=== PATIENT | male | born 1995 | race Caucasian/White ===

== ENCOUNTER 2016-07-15 19:03 | Emergency (ER) | payer BC | END 2016-07-15 20:38 | disposition left against medical advice (07) | LOC: UCCORT 19:03 | DX: S89.92XA Unspecified injury of left lower leg, initial encounter (principal); X58.XXXA Exposure to other specified factors, initial encounter; Y93.9 Activity, unspecified; Y92.9 Unspecified place or not applicable; Z53.21 Procedure and treatment not carried out due to patient leaving prior to being seen by health care provider ==

== ENCOUNTER 2016-07-15 20:38 | Emergency (ER) | payer BC ==
[2016-07-15 20:51] VITALS: BP 145/75
--- NOTE | 2016-07-15 21:26 | UC ---
Knee Pain HPI - HPI Summary HPI Summary: About 2 weeks ago fell directly onto L kneecap -- denies twisting or collapsing of knee. Within seconds/minutes, developed large protuberant purple swelling but was able to keep playing his lacrosse game. After a day or two swelling went back down and large area of bruising appeared. Pain was mostly improved until a similar fall today, also without twisting or abnormal knee movements. No focal swelling, but now has lateral knee pain and some posterior knee pain on lateral aspect. Denies any sensation of instability, able to walk. - History of Current Complaint Chief Complaint: UCLowerExtremity Stated Complaint: KNEE INJURY Time Seen by Provider: 07/15/16 21:12 Hx Obtained From: Patient Onset/Duration: Sudden Onset Severity Initially: Moderate Severity Currently: Mild Character: Dull, Aching Aggravating Factor(s): Movement Alleviating Factor(s): Rest Associated Signs And Symptoms: Positive: Swelling, Bruising Able to Bear Weight: Yes - Allergies/Home Medications Allergies/Adverse Reactions: Allergies Allergy/AdvReac Type Severity Reaction Status Date / Time No Known Allergies Allergy Verified 07/15/16 20:51 PMH/Surg Hx/FS Hx/Imm Hx Respiratory History Of: Reports: Asthma - Surgical History Surgical History: None - Family History Known Family History: Positive: None - Social History Lives: With Family Alcohol Use: Occasionally Substance Use Type: None Smoking Status (MU): Never Smoked Tobacco Household Exposure Type: Cigarettes - Immunization History Vaccination Up to Date: Yes Review of Systems Constitutional: Negative Skin: Bruising, Other - L knee abrasion Eyes: Negative ENT: Negative Respiratory: Negative Cardiovascular: Negative Gastrointestinal: Negative Genitourinary: Negative Motor: Negative Neurovascular: Negative Musculoskeletal: Arthralgia Neurological: Negative Psychological: Negative All Other Systems Reviewed And Are Negative: Yes Physical Exam Triage Information Reviewed: Yes Appearance: Well-Appearing, No Pain Distress, Well-Nourished Vital Signs: Initial Vital Signs Temp 99.3 F 07/15/16 20:47 Pulse 60 07/15/16 20:47 Resp 18 07/15/16 20:47 BP 145/75 07/15/16 20:47 Pulse Ox 97 07/15/16 20:47 Vital Signs Reviewed: Yes Eye Exam: Normal Eyes: Positive: Conjunctiva Clear ENT Exam: Normal ENT: Positive: Normal ENT inspection, Hearing grossly normal, Pharynx normal, TMs normal Dental Exam: Normal Neck exam: Normal Respiratory Exam: Normal Respiratory: Positive: Chest non-tender, Lungs clear, Normal breath sounds, No respiratory distress, No accessory muscle use Cardiovascular Exam: Normal Cardiovascular: Positive: RRR, No Murmur Musculoskeletal Exam: Other - diffuse swelling of L knee Musculoskeletal: Positive: Strength Intact, ROM Intact Neurological Exam: Normal Neurological: Positive: Alert Psychological Exam: Normal Skin Exam: Other - healing abrasions and old bruises to L knee and other parts of LLE Knee Pain Course/Dx - Differential Dx/Diagnosis Provider Diagnoses: L knee hematoma, healing. L knee contusion Discharge - Discharge Plan Condition: Stable Disposition: HOME Patient Education Materials: Knee Pain (ED), Contusion in Adults (ED) Referrals: Sreekanth Wayne MD [Primary Care Provider] - Additional Instructions: If you do not see clear and rapid improvement in the next 5-7 days, please follow up with Dr. Wayne's office. If you start to feel instability in the knee joint at any point, stop all athletics and see your primary care provider ( or an orthopedist) right away.
--- NOTE | 2016-07-15 22:00 | RAD ---
INDICATION: Left knee injury. TECHNIQUE: 4 views of the left knee were obtained. FINDINGS: The bones are in normal alignment. No joint effusion or fracture is seen. Joint spaces appear maintained. IMPRESSION: NO EVIDENCE FOR FRACTURE.
== END 2016-07-15 21:55 | disposition home or self-care (01) ==
LOC: UCEAST 20:38
DX: S80.02XA Contusion of left knee, initial encounter (principal); W19.XXXA Unspecified fall, initial encounter; J45.909 Unspecified asthma, uncomplicated; Z77.22 Contact with and (suspected) exposure to environmental tobacco smoke (acute) (chronic)
CPT/HCPCS: 99212; G0463

== ENCOUNTER 2016-11-12 10:43 | Emergency (ER) | payer BC ==
[2016-11-12 10:58] VITALS: BP 147/66
--- NOTE | 2016-11-12 11:21 | UC ---
Respiratory Complaint HPI - HPI Summary HPI Summary: 21 y/o male with h/o asthma, allerrgies c/o shortness of breath/ wheezing x 6 days. Patient overall feeling well, possible febrile on Friday, tactile only, working normally, no extreme SOB, lightheadedness. Patient states SOB is "annoying" alble to work, do daily activities. Has needed albuterol in the past, however does not have med or recent prescription. + cough, + runny nose. has been taking zyrtec without much benefit - History of Current Complaint Chief Complaint: UCRespiratory Stated Complaint: ASTHMA-MED REFILL Time Seen by Provider: 11/12/16 10:59 Hx Obtained From: Patient Onset/Duration: Lasting Days Timing: Constant Severity Initially: Moderate Severity Currently: Moderate Associated Signs And Symptoms: Positive: Dyspnea, Wheezing, URI, Nasal Congestion Related History: Similar Episode/Dx as: - h/o asthma - Risk Factors Pulmonary Embolism Risk Factors: Negative Cardiac Risk Factors: Negative Pseudomonas Risk Factors: Negative Tuberculosis Risk Factors: Negative - Allergies/Home Medications Allergies/Adverse Reactions: Allergies Allergy/AdvReac Type Severity Reaction Status Date / Time cats Allergy Eyes Uncoded 11/12/16 10:59 Itchy/Swollen/Red/Watery pollen Allergy Coughing Uncoded 11/12/16 10:59 Home Medications: Home Medications Cetirizine* [ZyrTEC 10 MG TAB*] 10 mg PO DAILY 11/12/16 [History Confirmed 11/12] Dextromethorphan-Phenylephrine [Vidhi-Kennett Plus Day Col 10-5-325 mg] 2 cap PO Q12H PRN 11/12/16 [History Confirmed 11/12/16] PMH/Surg Hx/FS Hx/Imm Hx Previously Healthy: No - h/o asthma, not requiring medication - Surgical History Surgical History: None - Family History Known Family History: Positive: None - Social History Alcohol Use: Occasionally Substance Use Type: None Smoking Status (MU): Never Smoked Tobacco Household Exposure Type: Cigarettes - Immunization History Vaccination Up to Date: Yes Review of Systems Constitutional: Fatigue Skin: Negative Eyes: Negative ENT: Sinus Congestion Respiratory: Shortness Of Breath, Cough Cardiovascular: Negative Gastrointestinal: Negative Genitourinary: Negative Motor: Negative Neurovascular: Negative Musculoskeletal: Negative Neurological: Negative Psychological: Negative All Other Systems Reviewed And Are Negative: Yes Physical Exam Triage Information Reviewed: Yes Appearance: Well-Appearing, No Pain Distress, Well-Nourished Vital Signs: Initial Vital Signs Temp 98.6 F 11/12/16 10:49 Pulse 75 11/12/16 10:49 Resp 18 11/12/16 10:49 BP 147/66 11/12/16 10:49 Pulse Ox 100 11/12/16 10:49 Vital Signs Reviewed: Yes Eye Exam: Normal Neck exam: Normal Neck: Positive: Supple, Nontender, No Lymphadenopathy Respiratory: Positive: No respiratory distress, No accessory muscle use, Wheezing - Entire R lobe Cardiovascular: Positive: RRR, No Murmur, Pulses Normal Abdomen Description: Positive: Nontender, No Organomegaly, Soft, Other: - neg b/ l cva tenderness Neurological Exam: Normal Psychological Exam: Normal Skin Exam: Normal Diagnostic Evaluation - Laboratory O2 Sat by Pulse Oximetry: 100 Respiratory Course/Dx - Course Course Of Treatment: asthma exacerbation likley to to viral URI. Qvar, albuterol given, patietn educated on sytmpoms, advised to follow up with PCP within 1 week or return to UC/ ER with increased SOB fever, chills - Differential Dx/Diagnosis Differential Diagnosis/HQI/PQRI: Aspiration, Asthma, Bronchitis, Lower Resp Infection, Sinusitis Provider Diagnoses: VIral upper respiratory illness, acute asthma exaccerbation , mild Discharge - Discharge Plan Condition: Good Disposition: HOME Prescriptions: Proair Hfa 2 puff INH Q4HR PRN #1 PRN Reason: Shortness Of Breath Albuterol HFA INHALER* [Ventolin HFA Inhaler*] 1 - 2 puff INH Q4H PRN #1 mdi PRN Reason: shortness of breath Beclomethasone 80 MCG MDI(NF) [Qvar 80 MCG MDI(NF)] 1 puff INH BID #1 mdi Patient Education Materials: Asthma (ED) Referrals: Sreekanth Wayne MD [Primary Care Provider] - Additional Instructions: - Albuterol inhaler- as needed every 4 hours for shortness of breath - Inhaled steroid/ Qvar- twice a day while having symptoms, decreased to once a day, stop after symptom free x 2 days - Follow up with primary physician if no improvement within 1-2 days - Return if symptoms worsen, fever, chills
== END 2016-11-12 11:27 | disposition home or self-care (01) ==
LOC: UCCORT 10:43
DX: J06.9 Acute upper respiratory infection, unspecified (principal); J45.901 Unspecified asthma with (acute) exacerbation; Z76.0 Encounter for issue of repeat prescription; Z77.22 Contact with and (suspected) exposure to environmental tobacco smoke (acute) (chronic)
CPT/HCPCS: 99212; G0463

== ENCOUNTER 2017-06-14 17:58 | Emergency (ER) | payer BC ==
[2017-06-14 18:26] VITALS: BP 153/88
--- NOTE | 2017-06-14 19:55 | UC ---
Complaint Male HPI - HPI Summary HPI Summary: This is an otherwise healthy 21 yo male who presents with concerns for dysuria and penile lesions. Dysuria has been present for a couple of days. No hematuria or penile discharge. No testicular pain/swelling. No fevers or abd pain. He noted one lesion at the base of his penis that he thought was an ingrown hair, 2 more have developed recently. He has one female partner which has had unprotected intercourse with. She was reportedly negative for STDs recently. No h/o STDs - History of Current Complaint Chief Complaint: UCGU Stated Complaint: POSSIBLE UTI Pain Intensity: 7 - Allergies/Home Medications Allergies/Adverse Reactions: Allergies Allergy/AdvReac Type Severity Reaction Status Date / Time cats Allergy Eyes Uncoded 06/14/17 18:27 Itchy/Swollen/Red/Watery pollen Allergy Coughing Uncoded 06/14/17 18:27 PMH/Surg Hx/FS Hx/Imm Hx Previously Healthy: Yes - Surgical History Surgical History: None - Family History Known Family History: Positive: None - Social History Alcohol Use: Occasionally Substance Use Type: Marijuana Substance Use Comment - Amount & Last Used: daily Smoking Status (MU): Never Smoked Tobacco Type: [email or web address] Household Exposure Type: Cigarettes - Immunization History Vaccination Up to Date: Yes Review of Systems Constitutional: Negative Skin: Negative Eyes: Negative ENT: Negative Respiratory: Negative Cardiovascular: Negative Gastrointestinal: Negative Genitourinary: Dysuria, Ulceration/Lesion Motor: Negative Neurovascular: Negative Musculoskeletal: Negative Neurological: Negative Psychological: Negative Is Patient Immunocompromised?: No All Other Systems Reviewed And Are Negative: Yes Physical Exam Triage Information Reviewed: Yes Appearance: Well-Appearing Vital Signs: Initial Vital Signs Temp 99.6 F 06/14/17 18:19 Pulse 68 06/14/17 18:19 Resp 18 06/14/17 18:19 BP 153/88 06/14/17 18:19 Pulse Ox 99 06/14/17 18:19 Vital Signs Reviewed: Yes ENT Exam: Normal ENT: Positive: Normal ENT inspection Neck exam: Normal Neck: Positive: Supple, Nontender, No Lymphadenopathy Respiratory Exam: Normal Respiratory: Positive: Lungs clear, Normal breath sounds. Negative: Crackles, Rhonchi, Wheezing Cardiovascular Exam: Normal Cardiovascular: Positive: RRR Abdominal Exam: Normal Abdomen Description: Positive: Nontender Musculoskeletal Exam: Normal Neurological Exam: Normal Psychological Exam: Normal Skin: Positive: Other - 3 erythemous lesions at the base of the penis, no ulceration or vesicles - Additional Comments No penile dc, testicular masses or swelling Diagnostics - Laboratory Diagnostic Studies Completed/Ordered: UA - WNL Complaint Male Course/Dx - Course Course Of Treatment: This is an otherwise healthy 21 yo male who presents with dysuria and penile lesions. UA is neg. Lesions appear benign. STD testing initiated including GC/Chl, HIV and syphillis. No drainage from the lesions to test for herpes - Differential Dx/Diagnosis Differential Diagnosis/HQI/PQRI: Epididymitis, Pyelonephritis, Urinary Tract Infection Provider Diagnoses: 1. Dysuria - possible STD, no empiric treatment initiated. Waiting for testing results Discharge - Discharge Plan Condition: Stable Disposition: HOME Patient Education Materials: Sexually Transmitted Diseases (ED), Safe Sex (ED) Referrals: Sreekanth Wayne MD [Primary Care Provider] - If Needed Additional Instructions: Instructions: 1. No treatment was started today 2. We will have results of your testing in 1-2 days
== END 2017-06-14 19:50 | disposition home or self-care (01) ==
LOC: UCEAST 17:58
DX: R30.0 Dysuria (principal); Z11.4 Encounter for screening for human immunodeficiency virus [HIV]
CPT/HCPCS: 36415; 81003; 86592; 86703; 87491; 87591; 99211; G0463

== ENCOUNTER 2018-06-23 10:32 | Emergency (ER) | payer BC ==
[2018-06-23 10:51] VITALS: BP 152/98
--- NOTE | 2018-06-23 11:11 | UC ---
General HPI - HPI Summary HPI Summary: States yesterday he began vomiting and having black diarrhea. About an hour ago he vomited dark red chunky vomit. He states he has had about 6-8 episodes of black diarrhea stools. No abdominal pain. Nausea. States he slightly lightheaded but did not eat or drink much this morning. No sick contacts. No SOB or CP. No abdominal pain. 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 Thinks it was the dust. No GI bleeding history. States he drinks 1-2 beers every other day. Smokes marijuana. Meds reviewed. - History of Current Complaint Chief Complaint: UCGI Stated Complaint: BLACK STOOL VOMITING BLOOD Time Seen by Provider: 06/23/18 10:56 Pain Intensity: 3 - Allergy/Home Medications Allergies/Adverse Reactions: Allergies Allergy/AdvReac Type Severity Reaction Status Date / Time cats Allergy Eyes Uncoded 06/23/18 10:51 Itchy/Swollen/Red/Watery pollen Allergy Coughing Uncoded 06/23/18 10:51 Home Medications: Home Medications Montelukast Sodium 10 mg PO DAILY 06/23/18 [History Confirmed 06/23/18] PMH/Surg Hx/FS Hx/Imm Hx Previously Healthy: Yes Respiratory History: Asthma - Surgical History Surgical History: None - Family History Known Family History: Positive: None - Social History Alcohol Use: Occasionally Substance Use Type: Marijuana Substance Use Comment - Amount & Last Used: daily Smoking Status (MU): Never Smoked Tobacco Type: eCigarettes Household Exposure Type: Cigarettes - Immunization History Vaccination Up to Date: Yes Review of Systems All Other Systems Reviewed And Are Negative: Yes Gastrointestinal: Positive: Vomiting, Diarrhea, Nausea Physical Exam Triage Information Reviewed: Yes Appearance: Well-Appearing Vital Signs: Initial Vital Signs Temp 97.9 F 06/23/18 10:47 Pulse 118 06/23/18 10:47 Resp 18 06/23/18 10:47 BP 152/98 06/23/18 10:47 Pulse Ox 99 06/23/18 10:47 Eyes: Positive: Conjunctiva Clear ENT: Positive: Normal ENT inspection, Other - no pallor conjunctiva Neck: Positive: Supple Respiratory: Positive: Lungs clear, Normal breath sounds Cardiovascular: Positive: RRR, No Murmur Abdomen Description: Positive: Nontender, Soft Course/Dx - Course Course Of Treatment: This is a 22 yr old with N/V/D Assessment Nontoxic appearing Hypertensive and tachycardic Concern for the melena and hematemesis Patient is here with his girlfriend. REcommend that he drive directly to the ER at [facility] to be evaluated for possible GI bleed Patient agreeable to plan. FOllow elevated BP at [facility] ER - Diagnoses Provider Diagnosis: Melena, Nausea and vomiting Discharge - Sign-Out/Discharge Documenting (check all that apply): Patient Departure All imaging exams completed and their final reports reviewed: No Studies - Discharge Plan Condition: Fair Disposition: TRANS HIGHER LVL OF CARE FAC Referrals: Julio Goff DO [Primary Care Provider] - Additional Instructions: Recommend having your girlfriend drive you directly to the ER at [facility] You need blood work and evaluation for your GI bleeding - Billing Disposition and Condition Condition: FAIR Disposition: Trans Higher Lvl of Care Fac
== END 2018-06-23 11:08 | disposition short-term general hospital (02) ==
LOC: UCEAST 10:32
DX: K92.1 Melena (principal); R11.2 Nausea with vomiting, unspecified; R00.0 Tachycardia, unspecified; J45.909 Unspecified asthma, uncomplicated; Z91.09 Other allergy status, other than to drugs and biological substances
CPT/HCPCS: 99212; G0463

== ENCOUNTER 2018-06-23 11:45 | Observation (INO) | payer BC ==
--- NOTE | 2018-06-23 12:13 | ED ---
GI/ HPI - HPI Summary HPI Summary: A 22 y/o M presents to ED with c/o hematemesis onset 0500 this date. Yesterday at 1700, he was out to dinner and ate 4-5 bites of his burrito. He felt ill, and vomited in the restaurant, he felt it was mostly food and slightly red tinged. At 0500, he vomited blood that was very red and chunky. He had a second episode at 1000. Associated sx: nausea, black stool 6-8x since last night, diarrhea. His stool was dark red and not coffee-ground colored. Denies epistaxis , abd pain. He took Immodium which has helped with the diarrhea. - History of Current Complaint Chief Complaint: EDGIBleed Time Seen by Provider: 06/23/18 12:08 Stated Complaint: BLOOD WORK/EVAL OF GI BLEED PER PT Hx Obtained From: Patient Onset/Duration: Started Hours Ago, Atraumatic, Still Present Timing: Constant Severity: Mild Current Severity: None Pain Intensity: 0 - out of 10 Associated Signs and Symptoms: Positive: Hematemesis, Nausea, Vomiting, Blood w/ Stool, Diarrhea, Other: - neg: epistaxis. Negative: Fever, Abdominal Pain Alleviating Factor(s): OTC Analgesics - Immodium - Allergy/Home Medications Allergies/Adverse Reactions: Allergies Allergy/AdvReac Type Severity Reaction Status Date / Time cats Allergy Eyes Uncoded 06/23/18 10:51 Itchy/Swollen/Red/Watery pollen Allergy Coughing Uncoded 06/23/18 10:51 PMH/Surg Hx/FS Hx/Imm Hx Previously Healthy: Yes Respiratory History: Reports: Hx Asthma Sensory History: Denies: Hx Legally Blind, Hx Deafness Opthamlomology History: Denies: Hx Legally Blind EENT History: Denies: Hx Deafness Neurological History: Denies: Hx Dementia Infectious Disease History: No Infectious Disease History: Denies: Hx Clostridium Difficile, Hx Hepatitis, Hx Human Immunodeficiency Virus (HIV), Hx of Known/Suspected MRSA, Hx Shingles, Hx Tuberculosis, Hx Known/ Suspected VRE, Hx Known/Suspected VRSA, History Other Infectious Disease, Traveled Outside the [place] in Last 30 Days - Family History Family History: neg: asthma - Social History Occupation: Student Lives: With Family Alcohol Use: Occasionally Hx Substance Use: Yes Substance Use Type: Reports: Marijuana Substance Use Comment - Amount & Last Used: daily Hx Tobacco Use: No Smoking Status (MU): Never Smoked Tobacco Type: eCigarettes Review of Systems Negative: Fever Negative: Epistaxis Positive: Vomiting, Diarrhea, Nausea, Other - pos: black stool, hematemesis. Negative: Abdominal Pain All Other Systems Reviewed And Are Negative: Yes Physical Exam - Summary Physical Exam Summary: Constitutional: Well-developed, Well-nourished, Alert. (-) Distressed Skin: Warm, Dry HENT: Normocephalic; Atraumatic Eyes: Conjunctiva normal Neck: Musculoskeletal ROM normal neck. (-) JVD, (-) Stridor, (-) Tracheal deviation Cardio: Rhythm regular, rate normal, Heart sounds normal; Intact distal pulses; The pedal pulses are 2+ and symmetric. Radial pulses are 2+ and symmetric. (-) Murmur Pulmonary/Chest wall: Effort normal. (-) Respiratory distress, (-) Wheezes, (-) Rales Abd: Soft, (-) tenderness, (-) Distension, (-) Guarding, (-) Rebound Musculoskeletal: (-) Edema Lymph: (-) Cervical adenopathy Neuro: Alert, Oriented x3 Psych: Mood and affect Normal Triage Information Reviewed: Yes Vital Signs On Initial Exam: Initial Vitals Temp Pulse Resp BP Pulse Ox 97.2 F 130 20 136/103 98 06/23/18 11:51 06/23/18 11:51 06/23/18 11:51 06/23/18 11:51 06/23/18 11:51 Vital Signs Reviewed: Yes Diagnostics - Vital Signs Vital Signs Temp Pulse Resp BP Pulse Ox 06/23/18 12:09 106 06/23/18 11:51 97.2 F 130 20 136/103 98 - Laboratory Result Diagrams: 06/23/18 16:31 06/23/18 12:22 Lab Statement: Any lab studies that have been ordered have been reviewed, and results considered in the medical decision making process. - EKG 1205 Cardiac Rate: Tachycardia - 106 bpm EKG Rhythm: Sinus Tachycardia Ectopy: None Summary of EKG Findings: Sinus tachy at 106 bpm, normal CT, normal QRS, normal QTc, normal axis, ST elevation in V1 and V2, normal T-waves, non-specific EKG. Re-Evaluation - Re-Evaluation 1 Re-Evaluation Time: 17:13 Change: Unchanged Comment: Discussing results and plans for admission, pt voiced understanding. Updated pt's mother. GIGU Course/Dx - Course Course Of Treatment: Pt is a 22 y/o M presenting with hematemesis 2x since 0500 this date, last episode at 1000. He vomited at dinner yesterday which was mostly food. Associated sx: nausea, black stool 6-8x since last night, diarrhea. His stool was dark red and not coffee-ground colored. He took Immodium which has helped with the diarrhea. PE is unremarkable. EKG shows Sinus tachy at 106 bpm, ST elevation in V1 and V2, otherwise non-specific EKG. Lab work shows Hgb: 13.1, Abs Neutrophils: 8.6, BUN/C ratio: 23.1, glucose: 112 , AST: 9, Lipase under 10. UA is unremarkable except low specific gravity. Occult Stool is positive for blood. Repeat Hgb is 12.4, and Hct is WNL. Consulted with Dr. Steinberg, GI, who recommends admission. Consulted with Dr. Irvin, hospitalist, who will admit patient. - Diagnoses Provider Diagnoses: Upper GI bleed - Physician Notifications Discussed Care Of Patient With: Benji Steinberg - GI Time Discussed With Above Provider: 17:00 Instructed by Provider To: Other - Recommends admission - Critical Care Time Critical Care Time: 30-74 min - 35 mins CCT Discharge - Sign-Out/Discharge Documenting (check all that apply): Patient Departure - ADMIT Patient Received Moderate/Deep Sedation with Procedure: No - Discharge Plan Condition: Stable Disposition: ADMITTED TO [facility] Referrals: Julio Goff DO [Primary Care Provider] - - Attestation Statements Document Initiated by Scribe: Yes Documenting Scribe: Alok Mccoy Provider For Whom Scribe is Documenting (Include Credential): Dr. Kimberly Damon MD Scribe Attestation: Alok Cardenas, scribed for Dr. Kimberly Damon MD on at 1724. Consult Consult: 1707: Consult with Dr. Irvin, hospitalist Will admit patient.
[2018-06-23 12:29] LABS: ABS Basophils 0 10^3/ul (0-0.2); ABS Eosinophils 0.1 10^3/ul (0-0.6); ABS Monocytes 0.8 10^3/ul (0-0.8); ABS Neutrophils 8.6 10^3/ul (1.5-7.7); ABS Nucleated RBC 0 10^3/ul; Hematocrit 38 % (36-46); Hemoglobin 13.1 g/dL (14.0-18.0); Lymphocyte % 9.5 %; Mean Corpuscular HGB Conc 35 g/dL (31-36); Mean Corpuscular Hemoglobin 31 pg (27-31); Mean Corpuscular Volume 90 fL (80-94); Mean Platelet Volume 7.4 fL (7.4-10.4); Nucleated Red Blood Cells % 0; Platelet Count 295 10^3/uL (150-450); Red Blood Count 4.24 10^6 /uL (4.18-5.48); Red Cell Distribution Width 13 % (10.5-15); White Blood Count 10.6 10^3/uL (3.5-10.8)
[2018-06-23 12:54] LABS: ALT 22 U/L (7-52); AST 9 U/L (13-39); Albumin 4.7 g/dL (3.2-5.2); Alkaline Phosphatase 50 U/L (34-104); Anion Gap 8 mmol/L (2-11); BUN/Creatinine Ratio 23.1 (8-20); Blood Urea Nitrogen 21 mg/dL (6-24); C Reactive Protein 3.47 mg/L (<8.01); CO2 Carbon Dioxide 26 mmol/L (22-32); Calcium 9.5 mg/dL (8.6-10.3); Chloride 103 mmol/L (101-111); EGFR African American 127.3 (>60); EGFR Non-African American 105.2 (>60); Globulin 2.3 g/dL (2-4); Glucose 112 mg/dL (70-100); Potassium 4.3 mmol/L (3.5-5.0); Sodium 137 mmol/L (135-145)
[2018-06-23 14:29] LABS: Urine Appearance Clear; Urine Bilirubin Negative (Negative); Urine Blood Negative (Negative); Urine Color Colorless; Urine Glucose Negative (Negative); Urine Ketones Negative (Negative); Urine Nitrite Negative (Negative); Urine Protein Negative (Negative); Urine Specific Gravity 1.001 (1.010-1.030); Urine Urobilinogen Negative (Negative)
[2018-06-23 16:40] LABS: Hematocrit 36 % (36-46); Hemoglobin 12.4 g/dL (14.0-18.0)
[2018-06-23] MEDS ORDERED: Pantoprazole* 80 mg IN NS 80 MG/250 ML BAG IVPB ONE (17:03)
[2018-06-23] MEDS ORDERED: Pantoprazole IV* 40 MG IV ONE (17:03)
[2018-06-23] MEDS ORDERED: NS 0.9% 1000 ML** 1,000 ML IV ONE (17:05)
[2018-06-23] MEDS ORDERED: Ondansetron INJ* 2 MG/ML VIAL IV PRN (19:23)
[2018-06-23] MEDS ORDERED: Albuterol HFA INHALER* 8 gm MDI INH PRN (19:26)
[2018-06-23] MEDS: NS 0.9% 1000 ML** 1,000 ML IV SCH (20:53)
--- NOTE | 2018-06-23 21:23 | HP ---
CC: Dr. Goff; Dr. Steinberg * HISTORY AND PHYSICAL: DATE OF ADMISSION: 06/23/18 PRIMARY CARE PROVIDER: Dr. Goff at [facility]. OTHER PROVIDERS IN CONSULTATION: Dr. Steinberg. ATTENDING PHYSICIAN: Dr. Carlos Day * (dictated by Harry Vicente NP) CHIEF COMPLAINT: 1. Nausea. 2. Hematemesis. 3. Melena. HISTORY OF PRESENT ILLNESS: Mr. Card is a 22-year-old male with a past medical history significant for asthma, who presented to the emergency room today with complaints of nausea, hematemesis, and dark red diarrhea. The patient reports that yesterday during the day, he felt a little nauseous, but did not think much of it. The patient went out to eat yesterday evening because he thought maybe nausea is related to hunger. He had about 4 bites of his meal and then vomited. He reports at that time he thought that the red streaks he noted in his vomit was due to having had red tea, but now recalling the events he believes it was possibly blood. The patient then woke at 0500 this morning, felt nauseous, and vomited blood that was "very red and chunky." He had a repeat episode of hemoptysis at 10 o'clock. In addition, he had 6 to 8 black stools that were loose. The patient then took Imodium and presented himself to the emergency department. While in the emergency department, the patient had a stool sample for blood, which was positive. The patient had a repeat CBC, which was unremarkable except a drop in his hemoglobin. Specifically, his hemoglobin at 1222 was 13.1 and the repeat at 1631 was 12.4. The ED provider, Dr. Mchugh, has contacted GI who recommended the patient be admitted to the hospitalist service with a plan of scope tomorrow with 2 units of packed red blood cells quality assurance monitor chassis. In addition, GI consultation also recommended Protonix drip and q.6 hours CBCs. Hospitalists were asked to evaluate for admission. PAST MEDICAL HISTORY: Asthma. PAST SURGICAL HISTORY: None. HOME MEDICATIONS: 1. Albuterol 1 to 2 puffs inhalation q.4 hours p.r.n. 2. Singulair 10 mg p.o. daily. ALLERGIES: No known drug allergies. Reports allergies to CATS and POLLEN. FAMILY HISTORY: Mom is alive and has a history of Crohn's disease. Dad is alive and has no medical history. The patient has a brother and a sister, who are healthy. The patient reports maternal grandmother had hypertension. The patient reports maternal grandfather of cardiovascular disease. SOCIAL HISTORY: The patient denies tobacco use. The patient reports alcohol use occasionally. The patient reports 2 to 3 beers every other day. The patient does report on 06/21/18, he had approximately 6 to 7 beers, but "was not hung- over." The patient reports daily marijuana use. 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 The patient is not . The patient has no kids. REVIEW OF SYSTEMS: The patient reports mild nausea. The patient denies vomiting since presenting to the emergency room. A 14-point review of systems was performed and all others were negative. PHYSICAL EXAMINATION GENERAL: Mr. Card is a 22-year-old male, who is sitting in bed, appears in no acute distress, appeared stated age. VITAL SIGNS: Temp 97.2, HR 110, RR 20, O2 sat 97% on room air, BP 140/92. HEENT: EOMs intact. PERRLA. Oral mucosa is moist without lesions. Posterior pharynx is clear. Posterior pharynx is also free from exudate, lesions, ulcers. NECK: Neck is supple. No lymphadenopathy. Full range of motion. RESPIRATORY: Symmetrical chest expansion. No accessory muscle use. LUNGS: Clear to auscultation. No rhonchi, wheezes, or rubs. CARDIAC: S1, S2 present. Regular rate and rhythm. No murmurs, rubs, or gallops. No JVD. ABDOMEN: Soft, nontender to palpation. Bowel sounds are positive throughout. Slightly hyperactive. No bruits appreciated. EXTREMITIES: Skin is warm and smooth bilaterally. No edema. No clubbing or cyanosis. Pedal pulses 2+ bilaterally. MUSCULOSKELETAL: Full range of motion. No pain or deformities. NEURO: Awake, alert, and oriented x4. Moves all extremities. SKIN: Grossly intact without lesions. DIAGNOSTIC STUDIES/LAB DATA: WBC 10.6, hemoglobin of 13.1, hematocrit of 38, platelets 294. Sodium is 137, potassium of 4.3, chloride is 103, carbon dioxide is 26, BUN is 21, creatinine is 0.91, glucose is 112. Lactic acid is 1.2. AST is 9. Lipase is less than 10. Urine is unremarkable. EKG: Impression: Sinus tachycardia with a rate greater than 99. ST elevation in V2 and V3 consistent with early repolarization. ASSESSMENT AND PLAN: Mr. Card is a 22-year-old male with a past medical history significant for asthma, who presented to the emergency room today with complaints of hematemesis and was found to have a gastrointestinal bleed. The patient will be admitted to observation. 1. Hematemesis: As mentioned above, the patient is suspected to have a gastrointestinal bleed. The patient will be admitted for observation. GI, Dr. Steinberg, has been consulted by the ED provider. Recommendations as follows: N.p.o., Protonix drip, scope tomorrow, 2 units of packed red blood cells quality assurance monitor chassis tomorrow, and CBC q.6 hours. The etiology of the patient's gastrointestinal bleed is unknown at this point. The patient denies ibuprofen use, the patient denies recent travel, the patient denies recent camping or recent illness. The patient's mother does have a history of Crohn's. The patient will be n.p.o. The patient states understanding of plan. 2. Melena: As mentioned in the HPI, the patient had a stool that was positive for blood secondary to gastrointestinal bleed. Plan as above. 3. Asthma: We will continue the patient's inhalers as needed. 4. FEN: The patient will be placed n.p.o. The patient will have normal saline at 100 mL per hour for gentle hydration while n.p.o. 5. Code status: The patient is a full code. 6. Surrogate decision maker: The patient's surrogate decision maker will be his mother, Priscilla Lake, [phone]. 7. DVT prophylaxis: Based on the DVT risk assessment, the patient is low risk. I will encourage ambulation. TIME SPENT: Approximately 60 minutes was spent on this admission, greater than half the time was spent with the patient obtaining my history, performing my physical exam, and reviewing my plan of care. This case has been reviewed with my attending, Dr. Day, who agrees with my plan. HARRY VICENTE, ELECTRO PLATER [id number]/[facility] #: [id number] MARCIA
[2018-06-24 01:53] LABS: ABS Basophils 0 10^3/ul (0-0.2); ABS Eosinophils 0.6 10^3/ul (0-0.6); ABS Lymphocytes 3.2 10^3/ul (1.0-4.8); ABS Monocytes 1.1 10^3/ul (0-0.8); ABS Neutrophils 6.1 10^3/ul (1.5-7.7); ABS Nucleated RBC 0 10^3/ul; Hematocrit 33 % (36-46); Hemoglobin 11.3 g/dL (14.0-18.0); Lymphocyte % 29.3 %; Mean Corpuscular HGB Conc 35 g/dL (31-36); Mean Corpuscular Hemoglobin 31 pg (27-31); Mean Corpuscular Volume 90 fL (80-94); Mean Platelet Volume 7.7 fL (7.4-10.4); Nucleated Red Blood Cells % 0; Platelet Count 237 10^3/uL (150-450); Red Cell Distribution Width 13 % (10.5-15); White Blood Count 11.1 10^3/uL (3.5-10.8)
[2018-06-24] MEDS: NS 0.9% 1000 ML** 1,000 ML IV SCH ×2 (06:41→23:19)
[2018-06-24 07:17] LABS: ABS Basophils 0 10^3/ul (0-0.2); ABS Eosinophils 0.5 10^3/ul (0-0.6); ABS Lymphocytes 2.1 10^3/ul (1.0-4.8); ABS Monocytes 0.8 10^3/ul (0-0.8); ABS Neutrophils 4.4 10^3/ul (1.5-7.7); ABS Nucleated RBC 0 10^3/ul; Eosinophil % 6.9 %; Hematocrit 31 % (36-46); Hemoglobin 10.5 g/dL (14.0-18.0); Lymphocyte % 26.4 %; Mean Corpuscular HGB Conc 34 g/dL (31-36); Mean Corpuscular Hemoglobin 30 pg (27-31); Mean Corpuscular Volume 90 fL (80-94); Mean Platelet Volume 7.9 fL (7.4-10.4); Nucleated Red Blood Cells % 0; Platelet Count 215 10^3/uL (150-450); Red Blood Count 3.44 10^6 /uL (4.18-5.48); Red Cell Distribution Width 13 % (10.5-15); White Blood Count 7.8 10^3/uL (3.5-10.8)
[2018-06-24 07:41] LABS: BUN/Creatinine Ratio 17.7 (8-20); EGFR African American 119.6 (>60); EGFR Non-African American 98.9 (>60); Potassium 4.2 mmol/L (3.5-5.0)
[2018-06-24] MEDS: Pantoprazole* 80 mg IN NS 80 MG/250 ML BAG IVPB SCH ×2 (10:23→23:19)
[2018-06-24 14:23] LABS: ABS Basophils 0 10^3/ul (0-0.2); ABS Eosinophils 0.5 10^3/ul (0-0.6); ABS Lymphocytes 2.1 10^3/ul (1.0-4.8); ABS Monocytes 0.7 10^3/ul (0-0.8); ABS Neutrophils 4.5 10^3/ul (1.5-7.7); ABS Nucleated RBC 0 10^3/ul; Eosinophil % 6.4 %; Hematocrit 32 % (36-46); Hemoglobin 10.9 g/dL (14.0-18.0); Lymphocyte % 26.4 %; Mean Corpuscular HGB Conc 34 g/dL (31-36); Mean Corpuscular Hemoglobin 31 pg (27-31); Mean Corpuscular Volume 91 fL (80-94); Mean Platelet Volume 7.7 fL (7.4-10.4); Nucleated Red Blood Cells % 0; Platelet Count 218 10^3/uL (150-450); Red Cell Distribution Width 13 % (10.5-15); White Blood Count 7.8 10^3/uL (3.5-10.8)
--- NOTE | 2018-06-24 15:26 | PN ---
Subjective Date of Service: 06/24/18 Interval History: Pt states that symptoms started Friday around 5 pm when he vomited and had dark stool. Friday around 530 pm, pt had dark stool. He had hematemesis at that time and at 10 pm that night. He then went to ER. He states that he has had indigestion/heart burn for the last 1 week. Since admission, pt states that he had 2 episodes of melena last night and none today. Denies hematemesis. State that he has occasional nausea, but denies abdominal pain. Denies extensive use of NSAIDs, excessive alcohol consumption. Positive for appx 1 week of heart burn symptoms. Mother has h/o Crohn's. Objective Active Medications: Albuterol (Ventolin Hfa Inhaler*) 1 puff INH Q4H PRN Sodium Chloride (Ns 0.9% 1000 Ml) 1,000 mls @ 100 mls/hr IV PER RATE BING Pantoprazole Sodium (Protonix Iv Bag*) 80 mg in 250 mls @ 25 mls/hr IVPB Q10H BING Ondansetron HCl (Zofran Inj*) 4 mg IV Q4H PRN Vital Signs: Temp Pulse Resp BP Pulse Ox 98.3 F 63 18 130/65 99 06/24/18 11:23 06/24/18 11:23 06/24/18 11:23 06/24/18 11:23 06/24/18 11:23 Oxygen Devices in Use Now: None Appearance: Pt is sitting up in bed. He appears well and is pleasant, cooperative, and smiling. He is in no acute distress. Eyes: No Scleral Icterus, PERRLA Ears/Nose/Mouth/Throat: NL Teeth, Lips, Gums, Mucous Membranes Moist Neck: NL Appearance and Movements; NL JVP, Trachea Midline Respiratory: Symmetrical Chest Expansion and Respiratory Effort, Clear to Auscultation Cardiovascular: NL Sounds; No Murmurs; No JVD, RRR, No Edema Abdominal: - - Abdomen is flat, without distension. BS in all quadrants. Nontender to palpation and without HSM. Lymphatic: No Cervical Adenopathy Extremities: No Edema, No Clubbing, Cyanosis Neurological: Alert and Oriented x 3 Result Diagrams: 06/24/18 14:05 06/24/18 06:39 Microbiology and Other Data: Microbiology 06/24/18 01:00 Stool Gross Appearance - Final Stool Stool Lactoferrin - Final 06/23/18 14:18 Stool Occult Blood (DARLENE) - Final Stool Assess/Plan/Problems-Billing Assessment: Pt is a 22yom with PMHx asthma who presented with melena, hematemesis, and anemia. - Patient Problems (1) UGIB (upper gastrointestinal bleed) Comment: -Hemodynamicall stable with + fecal occult blood and no hematemesis or melena yet today -GI consulted and plan for EGD today -Continue to trend H/H -Protonix drip (2) Anemia Comment: -Continue CBC q6h; currently 10.9/32 -2 U PRBC on standby (3) Asthma Comment: -No acute exacerbation -Continue home medication Albuterol inh prn (4) DVT prophylaxis Comment: -Low risk and in setting of anemia with possible GIB -Ambulation encouraged (5) Full code status Status and Disposition: Observation. Discharge when stable.
[2018-06-24] MEDS ORDERED: Midazolam* 1 MG/ML 10 ML VIAL (10 MG) ONE (15:42)
[2018-06-24] MEDS ORDERED: fentaNYL* 50 MCG/ML 2 ML VIAL (100 MCG VIAL) ONE ×2 (15:42→16:19)
[2018-06-24 20:12] LABS: ABS Basophils 0 10^3/ul (0-0.2); ABS Eosinophils 0.5 10^3/ul (0-0.6); ABS Lymphocytes 2.4 10^3/ul (1.0-4.8); ABS Monocytes 0.8 10^3/ul (0-0.8); ABS Neutrophils 5.4 10^3/ul (1.5-7.7); ABS Nucleated RBC 0 10^3/ul; Eosinophil % 5.4 %; Hematocrit 29 % (36-46); Hemoglobin 10.2 g/dL (14.0-18.0); Lymphocyte % 26.8 %; Mean Corpuscular HGB Conc 35 g/dL (31-36); Mean Corpuscular Hemoglobin 31 pg (27-31); Mean Corpuscular Volume 90 fL (80-94); Mean Platelet Volume 7.5 fL (7.4-10.4); Nucleated Red Blood Cells % 0.1; Platelet Count 197 10^3/uL (150-450); Red Blood Count 3.27 10^6 /uL (4.18-5.48); Red Cell Distribution Width 13 % (10.5-15); White Blood Count 9.1 10^3/uL (3.5-10.8)
--- NOTE | 2018-06-24 21:15 | CONS ---
GASTROENTEROLOGY CONSULTATION DATE: 06/24/18 - ROOM #416 CONSULTING PHYSICIANS: Dr. Julio Goff, Dr. Carlos Day. REASON FOR CONSULTATION: Hematemesis. 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 It seemed to progress a little bit. He did not think it was anything significant. On Friday06/22/18 around 5 p.m., he felt even worse and he vomited and thought it was dark. This occurred a couple of times. His stool then was dark. He came to the hospital last night and was admitted. His hemoglobin fell to 10.5 this morning, then rebounded slightly. His BUN was 21. He denies taking any aspirin, Advil, or Aleve and other trade names were queried also. He drinks beer 2-3 many but not all days. On 06/21 he had 7 beers. He has never had any gastrointestinal workups. His weight is increasing which he attributes to no sports. There is no family history of gastrointestinal bleeding. His mother has Crohn disease affecting the right lower quadrant. PAST MEDICAL HISTORY: 1. Asthma - no prednisone for over 10 years. 2. Multiple minor injuries - from college lacrosse. OUTPATIENT MEDS: None. 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 His weight has been increasing. He does not take supplements. REVIEW OF SYSTEMS: He has no history of cardiac disease, syncope, palpitations , seizures, hepatitis, jaundice, renal stones, hematuria, or overt rectal bleeding. PHYSICAL EXAMINATION: He is a moderately overweight, red-haired young man in no overt distress. He has freckles. HEENT exam is otherwise unremarkable. He has no adenopathy. His lungs are clear. Heart sounds are regular. The abdomen is symmetric, soft, and nontender. Rectal deferred. Extremities show no edema. Neurologic: Nonfocal with normal cranial nerves with symmetric movement of all 4 extremities. LABORATORY DATA: Hemoglobin 13.1 at presentation yesterday, down to 10.5 and now it is 10.9. MCV is 90 LFTs normal. Lipase less than 10, ALT 22. Albumin 4.7. IMPRESSION: This 22-year-old man with very short history of dyspepsia came in vomiting blood. His short history of dyspepsia would be somewhat atypical for gastroesophageal reflux disease but a more atypical for H. pylori, peptic ulcer disease and thus a complication of reflux (06/21 related) is most likely. Dieulafoy lesion unrelated to anything is a possibility. Upper endoscopy is clearly indicated. [id number]/[facility] #: [id number] MTDD
--- NOTE | 2018-06-24 22:06 | PRO ---
DATE: 06/24/18 - ROOM #416 REFERRING PHYSICIAN: Julio Goff DO * PROCEDURE: Upper gastrointestinal endoscopy and CLOtest, gastric body and biopsy mid esophageal superficial mucosal irregularity. 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 He has no longstanding history of acid peptic disease, but had had some dyspepsia for about week prior to coming in. He has been gaining weight. He has not taken NSAIDs. History was confirmed with multiple trade names and presence of his parents and girlfriend in the room. He has not had any vomiting or dark stool in about 24 hours. Informed consent was obtained with an opportunity for questions, special concerns and a travel discussion. ENDOSCOPIST: Mitul Ivey MD MEDICATIONS: Midazolam 15.5; fentanyl 175. FINDINGS: He is a healthy-appearing, red haired, freckled young man, in no distress. He was positioned left side down and moderate sedation induced. He tended to have intermittent sputtering eruptions during the procedure. He was, however, trying to cooperate. There was not generalized restlessness. It was a difficult to suppress gag reflex. EGD: Esophagus - appeared normal and intact without any erosions or peptic changes. There was a subtle furrowing in the mid to distal esophagus and during the withdrawal phase of the procedure when it was clear that things were stable, two biopsies were taken at 30 cm. The EG junction was at 39 and the hiatus at 41 to 42. There was a moderate hiatal hernia and a clot in a classic Flavia- Rubio location right at the EG junction. There was no active bleeding. This clot was stable and did not move. Stomach - generally normal mucosa in the cardia, fundus, body and antrum. CLOtest was taken. Duodenum - pylorus, bulb and 2nd through 4th portions were normal. IMPRESSION: 1. Small to moderate hiatal hernia. 2. Clinical gastroesophageal reflux disease - only a week of symptoms prior to the vomiting. 3. Flavia-Rubio tear - moderate risk, but stability for 24 hours is prognostically favorable. 4. Furrowed esophagus - await biopsies. We will treat him with double dose PPI for at least a month and then work on diet and lifestyle changes. [id number]/[facility] #: [id number] [facility]
[2018-06-25 03:43] LABS: ABS Basophils 0 10^3/ul (0-0.2); ABS Eosinophils 0.6 10^3/ul (0-0.6); ABS Lymphocytes 2.5 10^3/ul (1.0-4.8); ABS Monocytes 0.7 10^3/ul (0-0.8); ABS Neutrophils 3.9 10^3/ul (1.5-7.7); ABS Nucleated RBC 0 10^3/ul; Hematocrit 29 % (36-46); Hemoglobin 9.9 g/dL (14.0-18.0); Lymphocyte % 32.4 %; Mean Corpuscular HGB Conc 34 g/dL (31-36); Mean Corpuscular Hemoglobin 31 pg (27-31); Mean Corpuscular Volume 91 fL (80-94); Nucleated Red Blood Cells % 0.3; Platelet Count 218 10^3/uL (150-450); Red Blood Count 3.22 10^6 /uL (4.18-5.48); Red Cell Distribution Width 14 % (10.5-15); White Blood Count 7.7 10^3/uL (3.5-10.8)
[2018-06-25 06:28] LABS: ABS Basophils 0 10^3/ul (0-0.2); ABS Eosinophils 0.7 10^3/ul (0-0.6); ABS Monocytes 0.6 10^3/ul (0-0.8); ABS Neutrophils 3.8 10^3/ul (1.5-7.7); ABS Nucleated RBC 0 10^3/ul; Eosinophil % 9.2 %; Hematocrit 30 % (36-46); Hemoglobin 10.1 g/dL (14.0-18.0); Lymphocyte % 28.5 %; Mean Corpuscular HGB Conc 34 g/dL (31-36); Mean Corpuscular Hemoglobin 31 pg (27-31); Mean Corpuscular Volume 90 fL (80-94); Mean Platelet Volume 7.4 fL (7.4-10.4); Nucleated Red Blood Cells % 0.1; Platelet Count 198 10^3/uL (150-450); Red Cell Distribution Width 13 % (10.5-15); White Blood Count 7.1 10^3/uL (3.5-10.8)
[2018-06-25 11:33] VITALS: BP 138/69
[2018-06-25] MEDS: Pantoprazole* 80 mg IN NS 80 MG/250 ML BAG IVPB SCH (11:39)
--- NOTE | 2018-06-25 11:59 | DS ---
CC: Dr. Goff * DATE OF ADMISSION: 06/23/2018. DATE OF DISCHARGE: 06/25/2018. PRIMARY CARE PHYSICIAN: Dr. Goff. DISPOSITION ON DISCHARGE: Home. CONDITION ON DISCHARGE: Good. PRIMARY DIAGNOSES: 1. Flavia-Rubio tear associated with acute blood loss anemia. 2. Gastroesophageal reflux disease. 3. Mild to moderate hiatal hernia. 4. Furrowed esophagus, status post biopsies, pending results. SECONDARY DIAGNOSIS: Asthma MEDICATIONS ON DISCHARGE: 1. Omeprazole 20 mg twice daily to continue for one month. 2. Montelukast 10 mg daily. 3. ProAir HFA one to two puffs every 4 hours. PROCEDURES PERFORMED DURING HOSPITAL STAY: Upper endoscopy performed by Dr. Ivey, 06/24/2018: Impression: Small to moderate hiatal hernia. Clinical GERD with a week of symptoms prior to the beginning of vomiting. Flavia-Rubio tear and a furrowed esophagus with biopsies taken. Plan for twice daily PPI for one month. PERTINENT LABORATORY DATA: Hemoglobin on the day of discharge 10.1, hematocrit 30. HISTORY OF PRESENT ILLNESS AND HOSPITAL COURSE: This 22-year-old man with a past medical history of asthma who presented to the hospital with vomiting associated with hematemesis as well as melena. He had a week of GERD symptoms prior to initiation of vomiting. He underwent an upper endoscopy with Dr. Ivey as indicated above, notable for identification of a clot in a typical location of a Flavia-Rubio tear. There was also identification of a furrowed esophagus which biopsies were taken. The patient was maintained on Protonix drip until the time of his discharge, after which he will be continued on twice daily Omeprazole for a month. He had no additional bleeding during the course of the hospital stay. His hemoglobin remained stable. On the day of discharge , he was ambulating without lightheadedness, chest pain, or shortness of breath. He no complaints and felt back to his baseline and was eating. There was no nausea or vomiting. He is to follow-up with Dr. Goff for evaluation of biopsies. AT FOLLOW-UP, PLEASE: 1. Follow-up with biopsies as indicated above from esophagus. 2. Consider repeat CBC in coming weeks to months to evaluate for return to baseline. The patient was not started on iron at the time of discharge; however , can consider iron if not maintaining adequate resolution with home diet. A diet rich in iron was discussed with the patient. 3. Evaluate for resolution of dyspepsia/GERD symptoms. 4. Follow-up CLOtest. 5. No other specific labs or vitals that need follow-up. REASON TO RETURN TO THE HOSPITAL: Including, but not limited to recurrent or worsening symptoms, any bleeding from any source, chest pain, shortness of breath, nausea, vomiting, lightheadedness, loss of consciousness, near loss of consciousness, inability to obtain or tolerate medications was discussed with the patient and his family. They acknowledged understanding. TIME SPENT: Greater than 45 minutes were spent on this discharge of this patient, greater than half was spent [id number] with the patient. [id number]/[facility] #: [id number] MARCIA
== END 2018-06-25 11:47 | disposition home or self-care (01) ==
LOC: ED 11:45 → MED 19:23
PROVIDERS: ADMIT Internal Medicine; ATTEND Internal Medicine
DX: K22.6 Gastro-esophageal laceration-hemorrhage syndrome (principal); D62 Acute posthemorrhagic anemia; K21.9 Gastro-esophageal reflux disease without esophagitis; K44.9 Diaphragmatic hernia without obstruction or gangrene; K92.1 Melena; R11.2 Nausea with vomiting, unspecified; K92.2 Gastrointestinal hemorrhage, unspecified
CPT/HCPCS: 36415; 80048; 80053; 81003; 82272; 83605; 83630; 83690; 85014; 85018; 85025; 86140; 86850; 86900; 86901; 86922; 87045; 87046; 87077; 87899; 88305; 93005; 96361; 96372; 96374; 96375; 96376; 99156; 99157; 99284; A9270-GY; G0378; J2250; J3010

== ENCOUNTER → 2018-09-10 16:29 | Emergency (ER) | payer BC ==
[2018-09-10 16:39] VITALS: BP 166/93
== END | disposition home or self-care (01) ==
LOC: ED 16:29
DX: R19.5 Other fecal abnormalities (principal); Z53.21 Procedure and treatment not carried out due to patient leaving prior to being seen by health care provider
CPT/HCPCS: 99281

== ENCOUNTER 2018-09-14 17:58 | Emergency (ER) | payer BC ==
--- NOTE | 2018-09-14 19:52 | ED ---
GI/ HPI - HPI Summary HPI Summary: Patient is a 22 y/o M presenting to ED with known left-sided kidney stone and worsening left flank pain. Patient received a CT ABD/PEL three days ago. Left- sided kidney stone was noted, the patient was prescribed hydrocodone. He states that he has experienced an exacerbation of pain today. Pain is reported to radiate to lower abdomen and testicles. Patient reports taking three tablets of hydrocodone with no relief in pain. Last hydrocodone was taken 1330 today. He also endorses N/V, noting he had an episode of emesis around 1500 today. Hematuria and fever are denied. Patient had not been prescribed Flomax. On triage, pain is rated 10/10, nothing is noted to aggravate/alleviate Sx. Home medications and allergies are reviewed. - History of Current Complaint Chief Complaint: EDFlankPain Time Seen by Provider: 09/14/18 19:21 Stated Complaint: PASSING KIDNEY STONE PER PT Hx Obtained From: Patient Onset/Duration: Still Present, Worse Since Timing: Constant Severity: Severe Current Severity: Severe Pain Intensity: 10 Location of Pain: Flank - left Pain Radiates to: Inguinal Associated Signs and Symptoms: Positive: Nausea, Vomiting, Flank Pain - left. Negative: Fever, Hematuria Aggravating Factor(s): Nothing Alleviating Factor(s): Nothing - Additional Pertinent History Primary Care Physician: CALIN - Allergy/Home Medications Allergies/Adverse Reactions: Allergies Allergy/AdvReac Type Severity Reaction Status Date / Time cats Allergy Eyes Uncoded 09/14/18 19:27 Itchy/Swollen/Red/Watery pollen Allergy Coughing Uncoded 09/14/18 19:27 PMH/Surg Hx/FS Hx/Imm Hx Respiratory History: Reports: Hx Asthma Sensory History: Denies: Hx Contacts or Glasses, Hx Legally Blind, Hx Deafness, Hx Hearing Aid Opthamlomology History: Denies: Hx Contacts or Glasses, Hx Legally Blind Neurological History: Denies: Hx Dementia Infectious Disease History: No Infectious Disease History: Denies: Hx Clostridium Difficile, Hx Hepatitis, Hx Human Immunodeficiency Virus (HIV), Hx of Known/Suspected MRSA, Hx Shingles, Hx Tuberculosis, Hx Known/ Suspected VRE, Hx Known/Suspected VRSA, History Other Infectious Disease, Traveled Outside the [place] in Last 30 Days - Family History Known Family History: Negative: Respiratory Disease - neg: asthma Family History: neg: asthma - Social History Alcohol Use: Occasionally Hx Substance Use: Yes Substance Use Type: Reports: Marijuana Substance Use Comment - Amount & Last Used: daily Hx Tobacco Use: No Smoking Status (MU): Never Smoked Tobacco Type: eCigarettes Review of Systems Negative: Fever Positive: Vomiting, Nausea Positive: flank pain - left . Negative: hematuria All Other Systems Reviewed And Are Negative: Yes Physical Exam - Summary Physical Exam Summary: VITAL SIGNS: Reviewed. GENERAL: Patient is a well-developed and nourished male who is lying comfortable in the stretcher. Patient is not in any acute respiratory distress. Left CVA tenderness is noted. HEAD AND FACE: No signs of trauma. No ecchymosis, hematomas or skull depressions. No sinus tenderness. EYES: PERRLA, EOMI x 2, No injected conjunctiva, no nystagmus. EARS: Hearing grossly intact. Ear canals and tympanic membranes are within normal limits. MOUTH: Oropharynx within normal limits. NECK: Supple, trachea is midline, no adenopathy, no JVD, no carotid bruit, no c- spine tenderness, neck with full ROM CHEST: Symmetric, no tenderness at palpation LUNGS: Clear to auscultation bilaterally. No wheezing or crackles. CVS: Regular rate and rhythm, S1 and S2 present, no murmurs or gallops appreciated. ABDOMEN: Soft, non-tender. No signs of distention. No rebound no guarding, and no masses palpated. Bowel sounds are normal. EXTREMITIES: FROM in all major joints, no edema, no cyanosis or clubbing. NEURO: Alert and oriented x 3. No acute neurological deficits. Speech is normal and follows commands. SKIN: Dry and warm Triage Information Reviewed: Yes Vital Signs On Initial Exam: Initial Vitals Temp Pulse Resp BP Pulse Ox 98.2 F 93 20 181/109 99 09/14/18 18:04 09/14/18 18:04 09/14/18 18:04 09/14/18 18:04 09/14/18 18:04 Vital Signs Reviewed: Yes Diagnostics - Vital Signs Vital Signs Temp Pulse Resp BP Pulse Ox 09/14/18 18:04 98.2 F 93 20 181/109 99 - Laboratory Result Diagrams: 09/14/18 20:44 09/14/18 20:44 Lab Statement: Any lab studies that have been ordered have been reviewed, and results considered in the medical decision making process. Re-Evaluation - Re-Evaluation First Eval Re-Evaluation Time: 21:13 Change: Improved Comment: Patient reports improvement in Sx. Results of labs and tests were discussed with the patient. Patient will be discharged to home and follow up with PCP and urologist within three days. Strict return precautions were given. Patient is agreeable with this plan. GIGU Course/Dx - Course Course Of Treatment: Patient is a 22 y/o M presenting to ED with known left- sided kidney stone and worsening left flank pain. Patient received a CT ABD/PEL three days ago. Left-sided kidney stone was noted, the patient was prescribed hydrocodone. He states that he has experienced an exacerbation of pain today. Pain is reported to radiate to lower abdomen and testicles. Patient reports taking three tablets of hydrocodone with no relief in pain. Last hydrocodone was taken 1330 today. He also endorses N/V, noting he had an episode of emesis around 1500 today. Hematuria and fever are denied. Patient had not been prescribed Flomax. Left CVA tenderness is noted on physical exam. Labs showed WBC 11.6, Hgb 13, Hct 39, absolute neuts 9.5, absolute monos 1, glucose 130, AST 8. UA showed 3+ blood, trace WBC, 3+ RBC, present squamous epith cells. During ED course, patient received toradol 15 mg IV, reglan 10 mg IV, morphine 4 mg IV, fluids, and Flomax 0.4 mg PO. Patient reports improvement in Sx. Results of labs and tests were discussed with the patient. Patient will be discharged to home and follow up with PCP and urologist within three days. Strict return precautions were given. Patient is agreeable with this plan. - Diagnoses Provider Diagnoses: Renal colic on left side Discharge - Sign-Out/Discharge Documenting (check all that apply): Patient Departure - discharge Patient Received Moderate/Deep Sedation with Procedure: No - Discharge Plan Condition: Stable Disposition: HOME Prescriptions: Ibuprofen TAB* [Motrin TAB* 800 MG] 800 mg PO Q6H PRN #30 tab PRN Reason: Pain oxyCODONE/Acetamin 5/325 MG* [Percocet 5/325 TAB*] 1 tab PO Q6H PRN #14 tab MDD 4 PRN Reason: Pain Tamsulosin CAP* [Flomax CAP*] 0.4 mg PO BEDTIME #7 cap Patient Education Materials: Renal Colic (ED) Referrals: Julio Goff DO [Primary Care Provider] - 3 Days Raymond Sanchez MD [Medical Doctor] - 3 Days Additional Instructions: PLEASE RETURN TO THE ED IMMEDIATELY FOR WORSENING OR CONCERNING SYMPTOMS. FOLLOW UP WITH YOUR PRIMARY CARE PHYSICIAN AND UROLOGIST WITHIN THREE DAYS. - Attestation Statements Document Initiated by Scribe: Yes Documenting Scribe: PAOLO BALDERRAMA Provider For Whom Scribe is Documenting (Include Credential): BENITO CLAY MD Scribe Attestation: IPAOLO, scribed for BENITO CLAY MD on 09/14/18 at 2226. Status of Scribe Document: Ready
[2018-09-14] MEDS ORDERED: NS 0.9% 1000 ML** 1,000 ML IV ONE (19:57)
[2018-09-14] MEDS ORDERED: Ketorolac INJ* 30 MG/ML 1 ML VIAL IV PUSH ONE (19:57)
[2018-09-14] MEDS ORDERED: Tamsulosin CAP* 0.4 MG PO ONE (19:58)
[2018-09-14] MEDS ORDERED: Morphine 4 MG/ML VIAL (1 ml) 4 MG/ML VIAL IV ONE (19:58)
[2018-09-14] MEDS ORDERED: Metoclopramide IV* 5 MG/ML 2 ML VIAL IV SLOW PU ONE (19:58)
[2018-09-14 20:35] LABS: Urine Appearance Clear; Urine Bacteria Absent (Absent); Urine Bilirubin Negative (Negative); Urine Blood 3+ (Negative); Urine Color Straw; Urine Glucose Negative (Negative); Urine Ketones Negative (Negative); Urine Nitrite Negative (Negative); Urine Protein Negative (Negative); Urine Red Blood Cell 3+(>10/hpf) (Absent); Urine Specific Gravity 1.009 (1.010-1.030); Urine Squamous Epithelial Cell Present (Absent); Urine Urobilinogen Negative (Negative); Urine White Blood Cell Trace(0-5/hpf) (Absent)
[2018-09-14 20:51] LABS: ABS Eosinophils 0.1 10^3/ul (0-0.6); ABS Neutrophils 9.5 10^3/ul (1.5-7.7); Eosinophil % 0.9 %; Hematocrit 39 % (42-52); Mean Corpuscular HGB Conc 34 g/dL (31-36); Mean Corpuscular Hemoglobin 29 pg (27-31); Mean Corpuscular Volume 88 fL (80-94); Mean Platelet Volume 8.1 fL (7.4-10.4); Platelet Count 254 10^3/uL (150-450); Red Blood Count 4.42 10^6 /uL (4.18-5.48); Red Cell Distribution Width 13 % (10-15); White Blood Count 11.6 10^3/uL (3.5-10.8)
[2018-09-14 21:08] LABS: Albumin 4.4 g/dL (3.2-5.2); Albumin/Globulin Ratio 1.9 (1-3); BUN/Creatinine Ratio 9.2 (8-20); Calcium 9.7 mg/dL (8.6-10.3); EGFR African American 116.8 (>60); EGFR Non-African American 96.6 (>60); Globulin 2.3 g/dL (2-4); Potassium 3.9 mmol/L (3.5-5.0); Total Bilirubin 0.3 mg/dL (0.2-1.0); Total Protein 6.7 g/dL (6.4-8.9)
[2018-09-14 21:58] VITALS: BP 144/74
== END 2018-09-14 21:58 | disposition home or self-care (01) ==
LOC: ED 17:58
DX: N20.0 Calculus of kidney (principal); R11.2 Nausea with vomiting, unspecified
CPT/HCPCS: 36415; 80053; 81003; 81015; 85025; 87086; 96361; 96374; 96375; 99283; J1885; J2270; J2765